=== PATIENT | female | born 1990 | race Caucasian/White ===

== ENCOUNTER → 2023-04-09 06:49 | Outpatient (CLI) | payer OTHER, SELFPAY ==
--- NOTE | 2023-04-09 06:55 | DI.ECHO.S_ITS ---
[facility] +---------+ : : [address] : [place] : : : : [id number] : : : : Phone: [phone]+ Echocardiogram Report + + :Name: RUDY BUNCH Study Date: 04/09/2023 Height: 66 in : :[facility] ReadingLocation: Weight: 215 lb : : Gender: Female BSA: 2.1 m2 : :: 1990 Age: 33 yrs BP: 128/94 mmHg: :Reason For Study: CARDIAC MURMUR : :Ordering Physician: : :TOMASZ BOWIE Performed By: Samira Russell : :Referring: TOMASZ BOWIE : + + Interpretation Summary Normal left ventricle size with ejection fraction 60-65%. Mild mitral regurgitation. Procedure: A two-dimensional transthoracic echocardiogram with color flow and Doppler was performed. The study quality was technically adequate. There is no prior echocardiogram noted for this patient. The patient was in sinus rhythm with heart rates between 68-82 bpm during the exam. Left Ventricle: The left ventricle is normal in size and wall thickness. The ejection fraction is estimated to be 60-65%. Left ventricular wall motion is normal. Diastolic parameters suggest probable normal left ventricular diastolic function and normal filling pressures. Right Ventricle: The right ventricle is normal in size and function. Atria: The left atrial size is normal. The right atrium is normal in size. There is no Doppler evidence for an interatrial shunt. Mitral Valve: The mitral valve is normal in structure and function. There is mild mitral regurgitation. Aortic Valve: The aortic valve is trileaflet. The aortic valve opens well. There is no aortic valve stenosis. No aortic regurgitation is present. Tricuspid Valve: The tricuspid valve is normal in structure and function. There is trace tricuspid regurgitation. Pulmonic Valve: The pulmonic valve leaflets are thin and pliable; valve motion is normal. There is trace pulmonic regurgitation. Great Vessels: The aortic root is normal size. The dimensions of the ascending aorta are normal. The IVC is of normal diameter and collapses greater than 50% with a sniff. This suggests a low right atrial pressure of 3 mm Hg. Pericardium/ Pleura There is no pericardial effusion. There is no pleural effusion. MMode/2D Measurements & Calculations LVIDd: 5.1 cm LVOT diam: 2.0 cm LVIDs: 3.3 cm Ao root diam: 2.9 cm FS: 34.2 % asc Aorta Diam: 3.0 cm EPSS: 0.68 cm Ao Arch Diam (Prox Trans): 2.8 cm IVSd: 0.54 cm LVPWd: 0.77 cm LV mckeon. diameter/BSA (cm/m^2): 2.5 LV sys. diameter/BSA (cm/m^2): 1.6 LA A2 area: 18.6 cm2 RA long axis: 4.4 cm LA A4 area: 13.8 cm2 RA area: 12.9 cm2 LA length (vol): 4.9 cm RA vol: 32.6 ml LA vol: 44.2 ml RA : 15.8 ml/m2 LA vol index: 21.4 ml/m2 IVC diam: 1.6 cm RVD1 (basal): 3.8 cm RVD2 (mid): 2.9 cm TAPSE: 2.5 cm Doppler Measurements & Calculations Ao V2 max: 133.9 cm/sec LVOT Max Sergio: 117.7 cm/sec Ao V2 mean: 93.0 cm/sec LV V1 max P.5 mmHg Ao max P.2 mmHg LV V1 VTI: 23.7 cm Ao mean P.9 mmHg DARCY(I,D): 2.7 cm2 Ao V2 VTI: 28.3 cm DARCY(V,D): 2.8 cm2 sev ratio: 0.84 DARCY indexed to BSA (cm^2/m^2): 1.3 MV E max sergio: 113.1 cm/sec PA V2 max: 115.8 cm/sec MV A max sergio: 74.3 cm/sec PA V2 mean: 70.1 cm/sec MV E/A: 1.5 PA mean P.3 mmHg Med Peak E' Sergio: 14.5 cm/sec PA pr(Accel): 41.3 mmHg E/E' med: 7.8 Lat Peak E' Sergio: 18.4 cm/sec E/E' lat: 6.1 E/e' average: 7.0 MV dec time: 0.25 sec SV(LVOT): 75.4 ml Electronically signed by: Tawnya Penn on Reading Physician:04/09/2023 09:28 AM
== END ==
PROVIDERS: PCP Nurse Practitioner Family; Referring Provider Nurse Practitioner Family; Visit Provider Nurse Practitioner Family
DX: I34.0 Nonrheumatic mitral (valve) insufficiency (principal); R01.1 Cardiac murmur, unspecified
CPT/HCPCS: 93306